=== PATIENT | male | born 1955 | race Caucasian/White ===

== ENCOUNTER 2018-05-20 13:00 | Emergency (ER) | payer OTHER ==
[2018-05-20 13:57] LABS: BASOPHIL % 0.4 % (0.0-0.4); Basophil (Absolute #) 0.03 (0-0.4); Eosinophil % 0.8 % (0.00-5.0); Eosinophil (Absolute #) 0.06 (0-0.5); Granulocyte Absolute (ANC) 4.83 (1.4-6.9); Granulocytes % 68.4 % (36.0-66.0); Hemoglobin 14.1 gm/dl (12.5-18.0); Lymphocyte (Absolute #) 1.54 (1.0-4.6); Lymphocytes % 21.8 % (24.0-44.0); Mean Cell Volume 89.5 fl (78-100); Mean Corpuscular Hemoglobin 30.8 pg (26-32); Mean Corpuscular Hgb Concent. 34.4 g/dl (32-36); Mean Platelet Volume 8.8 fl (6-9.5); Monocyte (Absolute #) 0.61 (0.0-1.3); Monocytes % 8.6 % (0.0-12.0); Platelet Count 243 K/mm3 (150-450); Red Blood Count 4.58 M/mm3 (4.1-5.6); Red Cell Distribution Width 13.4 % (11.5-14.0); White Blood Count 7.1 K/mm3 (4.0-10.5)
[2018-05-20 13:59] LABS: Amphetamine,Urine NEGATIVE (NEGATIVE); Barbiturate,Urine NEGATIVE (NEGATIVE); Benzodiazepine,Urine NEGATIVE (NEGATIVE); Cocaine,Urine NEGATIVE (NEGATIVE); Methadone,Urine NEGATIVE (NEGATIVE); Opiate,Urine NEGATIVE (NEGATIVE); PCP,Urine NEGATIVE (NEGATIVE); THC,Urine POSITIVE (NEGATIVE)
[2018-05-20 14:16] LABS: ALBUMIN 4.4 g/dL (3.5-5.0); ALKALINE PHOSPHATASE 89 U/L (38-126); ANION GAP 14.4 MEQ/L (5-15); BLOOD UREA NITROGEN 17 mg/dL (9-20); CHLORIDE 103 mmol/L (98-107); Calcium 9.1 mg/dL (8.4-10.2); Carbon Dioxide 25 mmol/L (22-30); Creatinine 1 1.26 mg/dL (0.66-1.25); Glucose 96 mg/dL (74-106); Potassium 3.9 mmol/L (3.5-5.1); SGOT/AST 19 U/L (17-59); SGPT/ALT 11 U/L (0-50); SODIUM 139 mmol/L (137-145); Total Protein 7.6 g/dL (6.3-8.2)
[2018-05-20 14:27] LABS: ETHYL ALCOHOL < 10 mg/dL (0-10)
[2018-05-20 15:59] VITALS: O2SAT 98
[2018-05-20 17:25] VITALS: BP 147/97; PULSE 82
--- NOTE | 2018-05-20 17:42 | ERPHSYRPT ---
- History of Present Illness Time Seen by Provider: 05/20/18 13:15 Source: patient Exam Limitations: clinical condition Patient Subjective Stated Complaint: patient states he was seeing people in his apt yesterday and all night until 1000 today. states he got concerned and called the police to help him. Triage Nursing Assessment: to room walking per self accompanied by ems staff. ems staff reports patient had called police to help him because he thought there were strange people in his apt. at present time patient is alert/ oriented times three, skin w/d, color normal, resp easy. having lower back pain , states this is chronic. eunice. awad without difficulty. Physician History: PATIENT WITH A HISTORY OF HYPERTENSION AND DEPRESSION, CALLED POLICE 3 TIMES LAST NIGHT WITH COMPLAINTS OF STRANGERS IN HOME. POLICE WERE UNABLE TO FIND PEOPLE IN HIS HOME. PATIENT DENIES SUICIDAL OR HOMOCIDAL THOUGHTS, VISUAL OR AUDITORY HALLUCINATIONS. DENIES INGESTION OF STREET DRUGS. Timing/Duration: yesterday Severity of Symptoms-Max: none Severity of Symptoms-Current: none Context related to: other (STRANGERS IN HOME) Suicidal thoughts: other (DENIES) Associated Symptoms: other (STATING PEOPLE IN HOME) Allergies/Adverse Reactions: iodine Allergy (Mild, Verified 05/20/18 13:15) Hives Home Medications: Lisinopril 10 mg [Zestril 10 MG] 10 mg PO DAILY 05/20/18 [History] Trazodone HCl [Desyrel] 100 mg PO HS 05/20/18 [History] Hx Tetanus, Diphtheria Vaccination/Date Given: No Hx Influenza Vaccination/Date Given: Yes Hx Pneumococcal Vaccination/Date Given: No - Past Medical History Pertinent Past Medical History: Yes Neurological History: Migraines ENT History: No Pertinent History Cardiac History: No Pertinent History Respiratory History: No Pertinent History Endocrine Medical History: No Pertinent History Musculoskeletal History: Arthritis, Degenerative Disk Disease, Other GI Medical History: Ulcer History: No Pertinent History Psycho-Social History: No Pertinent History Male Reproductive Disorders: No Pertinent History - Past Surgical History Past Surgical History: Yes Neuro Surgical History: No Pertinent History Cardiac: No Pertinent History Respiratory: No Pertinent History Gastrointestinal: No Pertinent History Genitourinary: No Pertinent History Musculoskeletal: No Pertinent History Male Surgical History: No Pertinent History Other Surgical History: NASAL SURGERY. RIGHT SHOULDER SURGERY - Social History Smoking Status: Never smoker Exposure to second hand smoke: Yes Drug Use: marijuana Patient Lives Alone: No - Review of Systems Constitutional: No Fever, No Chills Eyes: No Symptoms Ears, Nose, & Throat: No Symptoms Respiratory: No Symptoms, No Cough, No Dyspnea Cardiac: No Symptoms, No Chest Pain, No Edema, No Syncope Abdominal/Gastrointestinal: No Abdominal Pain, No Nausea, No Vomiting, No Diarrhea Genitourinary Symptoms: No Symptoms, No Dysuria Musculoskeletal: No Back Pain, No Neck Pain Skin: No Rash Neurological: No Dizziness, No Focal Weakness, No Sensory Changes Psychological: No Symptoms, Other (STATING PEOPLE MAY HAVE BEEN IN HIS HOME) Endocrine: No Symptoms All Other Systems: Reviewed and Negative - Nursing Vital Signs Nursing Vital Signs: Initial Vital Signs Temperature 98.8 F 05/20/18 13:02 Pulse Rate 74 05/20/18 13:02 Respiratory Rate 16 05/20/18 13:02 Blood Pressure 153/96 05/20/18 13:02 O2 Sat by Pulse Oximetry 97 05/20/18 13:02 Pain Scale Pain Intensity 0 - Physical Exam General Appearance: no apparent distress Eyes, Ears, Nose, Throat Exam: normal ENT inspection, moist mucous membranes Neck Exam: normal inspection, non-tender, supple Respiratory Exam: normal breath sounds, lungs clear, No respiratory distress Cardiovascular Exam: regular rate/rhythm, No edema Gastrointestinal/Abdominal Exam: soft, normal bowel sounds, No tenderness, No distention Extremities Exam: normal inspection, normal range of motion, No evidence of injury, No edema Peripheral Pulses: carotid (R): 2+, carotid (L): 2+, femoral (R): 2+, femoral (L ): 2+, dorsalis-pedis (R): 2+, dorsalis-pedis (L): 2+ Current Suicidality: denies suicide plan Neurological Exam: alert, bale sewer II-XII nml as tested, oriented x 3 Appearance: appropriate appearance, appropriate insight Behavior/Eye Contact/Speech: alert & cooperative, cooperative Thoughts/Hallucinations: normal thought pattern, no apparent hallucination ( DENIES FLIGHT OF IDEAS) Skin Exam: normal color, warm, dry, No rash SpO2: 98 Oxygen Delivery: Room Air Ordered Tests: Active Orders 24 hr Category Date Time Status CBC W DIFF Stat Lab 05/20/18 13:30 Completed CMP Stat Lab 05/20/18 13:30 Completed ETHYL ALCOHOL Stat Lab 05/20/18 13:30 Completed Urine Triage Profile Stat Lab 05/20/18 13:37 Completed Lab/Rad Data: Laboratory Result Diagrams 05/20/18 13:30 05/20/18 13:30 Laboratory Results 05/20/18 05/20/18 05/20/18 Range/Units 13:37 13:30 13:30 WBC 7.1 (4.0-10.5) K/mm3 RBC 4.58 (4.1-5.6) M/mm3 Hgb 14.1 (12.5-18.0) gm/dl Hct 41.0 L (42-50) % MCV 89.5 (78-100) fl MCH 30.8 (26-32) pg MCHC 34.4 (32-36) g/dl RDW 13.4 (11.5-14.0) % Plt Count 243 (150-450) K/mm3 MPV 8.8 (6-9.5) fl Gran % 68.4 H (36.0-66.0) % Eos # (Auto) 0.06 (0-0.5) Absolute Lymphs (auto) 1.54 (1.0-4.6) Absolute Monos (auto) 0.61 (0.0-1.3) Lymphocytes % 21.8 L (24.0-44.0) % Monocytes % 8.6 (0.0-12.0) % Eosinophils % 0.8 (0.00-5.0) % Basophils % 0.4 (0.0-0.4) % Absolute Granulocytes 4.83 (1.4-6.9) Basophils # 0.03 (0-0.4) Sodium 139 (137-145) mmol/L Potassium 3.9 (3.5-5.1) mmol/L Chloride 103 (98-107) mmol/L Carbon Dioxide 25 (22-30) mmol/L Anion Gap 14.4 (5-15) MEQ/L BUN 17 (9-20) mg/dL Creatinine 1.26 H (0.66-1.25) mg/dL Estimated GFR > 60.0 ML/MIN Glucose 96 (74-106) mg/dL Calcium 9.1 (8.4-10.2) mg/dL Total Bilirubin 0.80 (0.2-1.3) mg/dL AST 19 (17-59) U/L ALT 11 (0-50) U/L Alkaline Phosphatase 89 (38-126) U/L Serum Total Protein 7.6 (6.3-8.2) g/dL Albumin 4.4 (3.5-5.0) g/dL Urine Opiates Level NEGATIVE (NEGATIVE) Ur Methadone NEGATIVE (NEGATIVE) Urine Barbiturates NEGATIVE (NEGATIVE) Ur Phencyclidine (PCP) NEGATIVE (NEGATIVE) Urine Amphetamine NEGATIVE (NEGATIVE) U Benzodiazepine Level NEGATIVE (NEGATIVE) Urine Cocaine NEGATIVE (NEGATIVE) Urine Marijuana (THC) POSITIVE (NEGATIVE) Ethyl Alcohol < 10 (0-10) mg/dL - Progress Progress Note: 05/20/18 17:42 TELE-PSYCH EVALUATION, PATIENT IS NOT A DANGER TO HIMSELF OR OTHERS Counseled pt/family regarding: lab results, diagnosis - Departure Time of Disposition: 17:45 Departure Disposition: Home Clinical Impression: DEPRESSION Condition: Good Critical Care Time: No Referrals: LUCILA THOMASON [Primary Care Provider] - Additional Instructions: FOLLOWUP WITH [facility] FOR EVALUATION TOMORROW FOR FOLLOWUP . CONSULT YOUR PRIMARY CARE PROVIDER FOR EVALUATION IN 4-5 DAYS OR RETURN TO EMERGENCY ROOM FOR PERSISTENT SYMPTOMS.
== END 2018-05-20 17:57 | disposition home or self-care (01) ==
LOC: ED 13:00
DX: F32.9 Major depressive disorder, single episode, unspecified (principal); I10 Essential (primary) hypertension; Z79.899 Other long term (current) drug therapy
CPT/HCPCS: 36000; 36415; 80053; 80307; 85025; 90791; 99284; Q3014; G0480

== ENCOUNTER 2021-07-07 13:27 | Emergency (ER) | payer MEDICARE ==
[2021-07-07 14:32] LABS: Absolute Neutrophil Ct (ANC) 3.32 (1.4-6.9); BASOPHIL % 0.5 % (0.0-0.4); Basophil (Absolute #) 0.03 (0-0.4); Eosinophil % 7.6 % (0.00-5.0); Eosinophil (Absolute #) 0.47 (0-0.5); Hematocrit 37.6 % (42-50); Hemoglobin 12.1 gm/dl (12.5-18.0); Lymphocyte (Absolute #) 1.72 (1.0-4.6); Lymphocytes % 27.8 % (24.0-44.0); Mean Cell Volume 99.5 fl (78-100); Mean Corpuscular Hgb Concent. 32.2 g/dl (32-36); Mean Platelet Volume 8.8 fl (7.5-11.0); Monocyte (Absolute #) 0.65 (0.0-1.3); Monocytes % 10.5 % (0.0-12.0); Neutrophil % 53.6 % (36.0-66.0); Platelet Count 204 K/mm3 (150-450); Red Blood Count 3.78 M/mm3 (4.1-5.6); White Blood Count 6.2 K/mm3 (4.0-10.5)
--- NOTE | 2021-07-07 14:39 | XRAY ---
Indication: Short of breath. Comparison: April 22, 2014. Portable chest remains hyperinflated and clear. Stable incidental right hilar and right midlung calcified granulomas. Heart not enlarged. Bony thorax intact again with mild degenerative changes. Impression: Continued nonacute hyperinflated chest with chronic features.
[2021-07-07 14:48] LABS: ALBUMIN 3.7 g/dL (3.5-5.0); ALKALINE PHOSPHATASE 100 U/L (38-126); ANION GAP 9.8 MEQ/L (5-15); BLOOD UREA NITROGEN 18 mg/dL (9-20); CHLORIDE 101 mmol/L (98-107); Calcium 8.8 mg/dL (8.4-10.2); Carbon Dioxide 30 mmol/L (22-30); Creatinine 1 0.98 mg/dL (0.66-1.25); EST GLOMERULAR FILTRATION RATE > 60.0 ML/MIN; Glucose 102 mg/dL (74-106); MAGNESIUM 1.9 mg/dL (1.6-2.3); NT PRO BNP 225 pg/mL (0-900); Potassium 4.1 mmol/L (3.5-5.1); SGOT/AST 28 U/L (17-59); SGPT/ALT 20 U/L (0-50); SODIUM 137 mmol/L (137-145); Total Protein 6.5 g/dL (6.3-8.2)
--- NOTE | 2021-07-07 15:06 | ERPHSYRPT ---
- History of Present Illness Time Seen by Provider: 07/07/21 13:45 Source: patient Exam Limitations: no limitations Patient Subjective Stated Complaint: bilateral lower leg swelling Triage Nursing Assessment: pt to ED c/o bilateral lower leg swelling without pain x 4 days. states he has not noticed this swelling before, reports only cardiac hx is HTN. denies CP or SOB. no other associated sx reported. Physician History: Patient is a 65-year-old white male who presents with a 4-day history of swelling of both lower extremities from the knees to the toes. He denies any shortness of breath he denies any chest pain he denies any change in his urination. Timing/Duration: day(s) (4) Activities at Onset: none Quality: fullness, pressure Location: other (Both lower extremities) Chest Pain Radiation: no radiation Severity of Pain-Max: mild Severity of Pain-Current: mild Modifying Factors: Improves With: nothing Nitro Today/Relief: no nitro taken today Aspirin Treatment Today: no aspirin today Associated Symptoms: denies symptoms Prior Chest Pain/Cardiac Workup: no prior chest pain Allergies/Adverse Reactions: iodine Allergy (Mild, Verified 07/07/21 13:56) Hives Home Medications: Lisinopril 10 mg [Zestril 10 MG] 10 mg PO DAILY 05/20/18 [History] Trazodone HCl [Desyrel] 100 mg PO HS 05/20/18 [History] Hx Tetanus, Diphtheria Vaccination/Date Given: No Hx Influenza Vaccination/Date Given: Yes Hx Pneumococcal Vaccination/Date Given: No Immunizations Up to Date: No Travel Risk - International Travel Have you traveled outside of the country in past 3 weeks: No - Coronavirus Screening Are you exhibiting any of the following symptoms?: No Close contact with a COVID-19 positive Pt in past 14-21 Days: No - Vaccine Status Have you recieved a Covid-19 vaccination: Yes [employer]: Moderna - Vaccination Dates Date of 2cond Vaccination (if applicable): february - Review of Systems Constitutional: No Fever, No Chills Eyes: No Symptoms Ears, Nose, & Throat: No Symptoms Respiratory: No Cough, No Dyspnea Cardiac: Edema, No Chest Pain, No Syncope Abdominal/Gastrointestinal: No Abdominal Pain, No Nausea, No Vomiting, No Diarrhea Genitourinary Symptoms: No Dysuria Musculoskeletal: No Back Pain, No Neck Pain Skin: No Rash Neurological: No Dizziness, No Focal Weakness, No Sensory Changes Psychological: No Symptoms Endocrine: No Symptoms All Other Systems: Reviewed and Negative - Past Medical History Pertinent Past Medical History: Yes Neurological History: Migraines ENT History: No Pertinent History Cardiac History: No Pertinent History Respiratory History: No Pertinent History Endocrine Medical History: No Pertinent History Musculoskeletal History: Arthritis, Degenerative Disk Disease, Other GI Medical History: Ulcer History: No Pertinent History Psycho-Social History: No Pertinent History Male Reproductive Disorders: No Pertinent History Other Medical History: lower lumbar fx as teenager, chronic back pain - Past Surgical History Past Surgical History: Yes Neuro Surgical History: No Pertinent History Cardiac: No Pertinent History Respiratory: No Pertinent History Gastrointestinal: No Pertinent History Genitourinary: No Pertinent History Musculoskeletal: No Pertinent History Male Surgical History: No Pertinent History Other Surgical History: NASAL SURGERY. RIGHT SHOULDER SURGERY - Social History Smoking Status: Never smoker Exposure to second hand smoke: Yes Drug Use: none Patient Lives Alone: No - Nursing Vital Signs Nursing Vital Signs: Initial Vital Signs Temperature 98.0 F 07/07/21 13:44 Pulse Rate 126 H 07/07/21 13:44 Respiratory Rate 20 07/07/21 13:44 Blood Pressure 176/100 07/07/21 13:44 O2 Sat by Pulse Oximetry 100 07/07/21 13:44 Pain Scale Pain Intensity 0 - Physical Exam General Appearance: no apparent distress, alert Eye Exam: PERRL/EOMI, eyes nml inspection Ears, Nose, Throat Exam: normal ENT inspection, moist mucous membranes Neck Exam: normal inspection, non-tender, supple Respiratory Exam: normal breath sounds, lungs clear, No respiratory distress Cardiovascular Exam: regular rate/rhythm, normal heart sounds, No edema Gastrointestinal/Abdomen Exam: soft, No tenderness, No mass Back Exam: normal inspection, No CVA tenderness, No vertebral tenderness Extremity Exam: normal range of motion, pedal edema (2+) Neurologic Exam: alert, oriented x 3, cooperative, normal mood/affect, nml cerebellar function, sensation nml, No motor deficits Skin Exam: normal color, warm, dry Lymphatic Exam: No adenopathy SpO2: 100 - Course Nursing assessment & vital signs reviewed: Yes Ordered Tests: Active Orders 24 hr Category Date Time Status EKG-ER Only STAT Care 07/07/21 14:08 Active CHEST 1 VIEW (PORTABLE) Stat Exams 07/07/21 14:09 Completed CBC W DIFF Stat Lab 07/07/21 14:20 Completed CMP Stat Lab 07/07/21 14:20 Completed D-DIMER QUANTITATIVE Stat Lab 07/07/21 14:20 Received MAGNESIUM Stat Lab 07/07/21 14:20 Completed NT PRO BNP Stat Lab 07/07/21 14:20 Completed TROPONIN Q3H Lab 07/07/21 14:20 Received TROPONIN Q3H Lab 07/07/21 17:15 Ordered TROPONIN Q3H Lab 07/07/21 20:15 Ordered TROPONIN Q3H Lab 07/07/21 23:15 Ordered TROPONIN Q3H Lab 07/08/21 02:15 Ordered UA W/RFX UR CULTURE Stat Lab 07/07/21 14:09 Ordered Lab/Rad Data: Laboratory Result Diagrams 07/07/21 14:20 07/07/21 14:20 Laboratory Results 07/07/21 07/07/21 Range/Units 14:20 14:20 WBC 6.2 (4.0-10.5) K/mm3 RBC 3.78 L (4.1-5.6) M/mm3 Hgb 12.1 L (12.5-18.0) gm/dl Hct 37.6 L (42-50) % MCV 99.5 (78-100) fl MCH 32.0 (26-32) pg MCHC 32.2 (32-36) g/dl RDW 13.0 (11.5-14.0) % Plt Count 204 (150-450) K/mm3 MPV 8.8 (7.5-11.0) fl Gran % 53.6 (36.0-66.0) % Eos # (Auto) 0.47 (0-0.5) Absolute Lymphs (auto) 1.72 (1.0-4.6) Absolute Monos (auto) 0.65 (0.0-1.3) Lymphocytes % 27.8 (24.0-44.0) % Monocytes % 10.5 (0.0-12.0) % Eosinophils % 7.6 H (0.00-5.0) % Basophils % 0.5 (0.0-0.4) % Absolute Granulocytes 3.32 (1.4-6.9) Basophils # 0.03 (0-0.4) Sodium 137 (137-145) mmol/L Potassium 4.1 (3.5-5.1) mmol/L Chloride 101 (98-107) mmol/L Carbon Dioxide 30 (22-30) mmol/L Anion Gap 9.8 (5-15) MEQ/L BUN 18 (9-20) mg/dL Creatinine 0.98 (0.66-1.25) mg/dL Estimated GFR > 60.0 ML/MIN Glucose 102 (74-106) mg/dL Calcium 8.8 (8.4-10.2) mg/dL Magnesium 1.9 (1.6-2.3) mg/dL Total Bilirubin 0.30 (0.2-1.3) mg/dL AST 28 (17-59) U/L ALT 20 (0-50) U/L Alkaline Phosphatase 100 (38-126) U/L NT-Pro-B Natriuret Pep 225 (0-900) pg/mL Serum Total Protein 6.5 (6.3-8.2) g/dL Albumin 3.7 (3.5-5.0) g/dL - Progress Progress: unchanged Air Movement: good Blood Culture(s) Obtained: No Antibiotics given: No - Departure Departure Disposition: Home Clinical Impression: Peripheral edema Condition: Stable Critical Care Time: No Referrals: LUCILA THOMASON [Primary Care Provider] - Instructions: Dependent Edema (DC) Prescriptions: Furosemide 20 mg [Lasix 20 mg] 20 mg PO DAILY 7 Days #7 tablet
--- NOTE | 2021-07-07 16:27 | XRAY ---
Indication: Bilateral leg pain. Short of breath. Two-dimensional sonogram and color Doppler imaging of the major venous vessels of the left and right leg performed. Comparison: None No thrombus seen in the examined deep venous vessels of the left and right leg including greater saphenous vein. Veins demonstrate normal compressibility. Venous waveforms are normal with and without augmentation. Posterior right knee demonstrates 4.2 x 0.9 x 2.3 cm Ellis's cyst. Impression: Left and right legs negative for DVT. Incidental right Ellis cyst.
[2021-07-07 16:43] LABS: Appearance CLEAR (CLEAR); Bilirubin NEGATIVE (NEGATIVE); Blood MODERATE Ery/ul (0-5); Glucose NEGATIVE (NEGATIVE); Ketones NEGATIVE (NEGATIVE); Leukocyte Esterase NEGATIVE (NEGATIVE); Nitrite NEGATIVE (NEGATIVE); Protein,Urine Dip NEGATIVE (Negative); Specific Gravity 1.021 (1.005-1.025); Urobilinogen NEGATIVE mg/dL (0-1); WBC 0-2 /HPF (0-5)
[2021-07-07] MEDS ORDERED: Catapres 0.1 MG PO ONE (16:43)
[2021-07-07] MEDS ORDERED: LASIX 20 MG PO ONE (16:45)
[2021-07-07] MEDS ORDERED: Catapres 0.1 MG ONE (16:49)
[2021-07-07 17:02] VITALS: BP 180/118; PULSE 77; O2SAT 99
[2021-07-08] MEDS ORDERED: Zestril 20 MG PO ONE (16:44)
== END 2021-07-07 17:03 | disposition home or self-care (01) ==
LOC: ED 13:27
DX: R60.0 Localized edema (principal); R79.1 Abnormal coagulation profile; Z79.899 Other long term (current) drug therapy; Z20.822 Contact with and (suspected) exposure to COVID-19
CPT/HCPCS: 36415; 71045; 80053; 81001; 83735; 83880; 84484; 85025; 85379; 93005; 93970; 99284; A9270-GY

== ENCOUNTER 2021-08-06 16:05 | Emergency (ER) | payer MEDICARE ==
--- NOTE | 2021-08-06 17:06 | ERPHSYRPT ---
- History of Present Illness Time Seen by Provider: 08/06/21 17:06 Source: patient Exam Limitations: no limitations Physician History: This is a 65-year-old white male patient of Dr. Tristan out of [facility] who returns to this emergency department with a complaint of bilateral lower extremity swelling of 2 to 3-day duration. Patient has similar episode proxy 1 month ago. Patient was given Lasix orally for 7 days and the symptoms resolved and he never sought medical care with his primary care physician. Patient has no known renal or cardiac issues. Patient does have a history of hypertension, migraine headaches, DJD and prostate issues. He has noticed that his stream has slowed down and he is not emptying his bladder as well. Patient denies chest pain and he denies shortness of breath. Method of Injury: other Occurred: other (No injury) Quality: other (No significant pain) Severity of Pain-Max: none Severity of Pain-Current: none Modifying Factors: Improves With: nothing Allergies/Adverse Reactions: iodine Allergy (Mild, Verified 08/06/21 17:14) Hives Home Medications: Lisinopril 10 mg [Zestril 10 MG] 10 mg PO DAILY 05/20/18 [History] Trazodone HCl [Desyrel] 100 mg PO HS 05/20/18 [History] Oxycodone HCl/Acetaminophen [Oxycodone-Acetaminophen 10-325] 1 each PO QID 08/06/21 [History] Hx Tetanus, Diphtheria Vaccination/Date Given: No Hx Influenza Vaccination/Date Given: Yes Hx Pneumococcal Vaccination/Date Given: No Travel Risk - International Travel Have you traveled outside of the country in past 3 weeks: No - Coronavirus Screening Are you exhibiting any of the following symptoms?: No Close contact with a COVID-19 positive Pt in past 14-21 Days: No - Vaccine Status Have you recieved a Covid-19 vaccination: Yes [employer]: Moderna - Vaccination Dates Date of 2cond Vaccination (if applicable): february - Review of Systems Constitutional: No Symptoms Eyes: No Symptoms Ears, Nose, & Throat: No Symptoms Respiratory: No Symptoms Cardiac: No Symptoms Abdominal/Gastrointestinal: No Symptoms Genitourinary Symptoms: No Symptoms Musculoskeletal: Other (Swelling bilateral lower extremities) Skin: No Symptoms Neurological: No Symptoms Psychological: No Symptoms Endocrine: No Symptoms Hematologic/Lymphatic: No Symptoms Immunological/Allergic: No Symptoms All Other Systems: Reviewed and Negative - Past Medical History Pertinent Past Medical History: Yes Neurological History: Migraines ENT History: No Pertinent History Cardiac History: No Pertinent History Respiratory History: No Pertinent History Endocrine Medical History: No Pertinent History Musculoskeletal History: Arthritis, Degenerative Disk Disease, Other GI Medical History: Ulcer History: No Pertinent History Psycho-Social History: No Pertinent History Male Reproductive Disorders: No Pertinent History Other Medical History: lower lumbar fx as teenager, chronic back pain - Past Surgical History Past Surgical History: Yes Neuro Surgical History: No Pertinent History Cardiac: No Pertinent History Respiratory: No Pertinent History Gastrointestinal: No Pertinent History Genitourinary: No Pertinent History Musculoskeletal: No Pertinent History Male Surgical History: No Pertinent History Other Surgical History: NASAL SURGERY. RIGHT SHOULDER SURGERY - Social History Smoking Status: Never smoker Exposure to second hand smoke: Yes Drug Use: none Patient Lives Alone: No - Nursing Vital Signs Nursing Vital Signs: Initial Vital Signs Temperature 97.0 F 08/06/21 17:09 Pulse Rate 76 08/06/21 17:09 Respiratory Rate 18 08/06/21 17:09 Blood Pressure 205/113 08/06/21 17:09 O2 Sat by Pulse Oximetry 99 08/06/21 17:09 Pain Scale Pain Intensity 2 - Physical Exam General Appearance: no apparent distress, alert, anxiety Eyes, Ears, Nose, Throat Exam: normal ENT inspection, moist mucous membranes Neck Exam: normal inspection, non-tender, supple, full range of motion Cardiovascular/Respiratory Exam: chest non-tender, no respiratory distress Gastrointestinal/Abdominal Exam: non-tender Back Exam: normal inspection, normal range of motion, No CVA tenderness, No vertebral tenderness Hips Exam: bilateral: non-tender, normal inspection, normal range of motion, no evidence of injury Legs Exam: bilateral leg: non-tender, normal inspection, normal range of motion, no evidence of injury Knees Exam: bilateral knee: non-tender, normal inspection, normal range of motion, no evidence of injury Ankle Exam: bilateral ankle: non-tender, normal range of motion, no evidence of injury, swelling (Mild but present) Foot Exam: bilateral foot: non-tender, normal range of motion, no evidence of injury, swelling Neuro/Tendon Exam: normal sensation, normal motor functions, normal tendon functions, responds to pain, no evidence tendon injury Mental Status Exam: alert, oriented x 3, cooperative Skin Exam: normal color, warm, dry SpO2 Interpretation: normal O2 Delivery: Room Air - Course Nursing assessment & vital signs reviewed: Yes Ordered Tests: Active Orders 24 hr Category Date Time Status AMA [Release AMA] OM.NOW Care 08/06/21 19:18 Ordered IV Insertion STAT Care 08/06/21 18:00 Active CBC W DIFF Stat Lab 08/06/21 18:20 Completed CMP Stat Lab 08/06/21 18:20 Completed D-DIMER QUANTITATIVE Stat Lab 08/06/21 18:15 Completed MAGNESIUM Stat Lab 08/06/21 18:20 Completed NT PRO BNP Stat Lab 08/06/21 18:20 Completed Medication Summary Discontinued Medications Generic Name Dose Route Start Last Admin Trade Name Freq PRN Reason Stop Dose Admin Furosemide 40 mg 08/06/21 18:40 Furosemide 40 Mg/4 Ml Vial IV 08/06/21 18:41 STAT ONE Lab/Rad Data: Laboratory Result Diagrams 08/06/21 18:20 08/06/21 18:20 Laboratory Results 08/06/21 08/06/21 08/06/21 Range/Units 18:20 18:20 18:15 WBC 6.0 (4.0-10.5) K/mm3 RBC 4.06 L (4.1-5.6) M/mm3 Hgb 12.8 (12.5-18.0) gm/dl Hct 39.6 L (42-50) % MCV 97.5 (78-100) fl MCH 31.5 (26-32) pg MCHC 32.3 (32-36) g/dl RDW 12.8 (11.5-14.0) % Plt Count 99 L (150-450) K/mm3 MPV 9.8 (7.5-11.0) fl Gran % 68.2 H (36.0-66.0) % Eos # (Auto) 0.20 (0-0.5) Absolute Lymphs (auto) 1.23 (1.0-4.6) Absolute Monos (auto) 0.44 (0.0-1.3) Lymphocytes % 20.6 L (24.0-44.0) % Monocytes % 7.4 (0.0-12.0) % Eosinophils % 3.3 (0.00-5.0) % Basophils % 0.5 (0.0-0.4) % Absolute Granulocytes 4.08 (1.4-6.9) Basophils # 0.03 (0-0.4) D-Dimer 1416 H* (215-500) ng/mL Sodium 137 (137-145) mmol/L Potassium 4.2 (3.5-5.1) mmol/L Chloride 104 (98-107) mmol/L Carbon Dioxide 26 (22-30) mmol/L Anion Gap 11.0 (5-15) MEQ/L BUN 11 (9-20) mg/dL Creatinine 0.96 (0.66-1.25) mg/dL Estimated GFR > 60.0 ML/MIN Glucose 99 (74-106) mg/dL Calcium 9.5 (8.4-10.2) mg/dL Magnesium 1.6 (1.6-2.3) mg/dL Total Bilirubin 0.50 (0.2-1.3) mg/dL AST 29 (17-59) U/L ALT 17 (0-50) U/L Alkaline Phosphatase 73 (38-126) U/L NT-Pro-B Natriuret Pep 774 (0-900) pg/mL Serum Total Protein 6.2 L (6.3-8.2) g/dL Albumin 3.5 (3.5-5.0) g/dL - Progress Progress: improved Progress Note: 08/06/21 19:19 Medical decision making: This patient suddenly decided that he wanted to leave AMA. His reasoning was that he is cold and he did want to wait for the complete work-up. I expressed to him the importance of staying to complete the work-up. However he refused and signed an AMA form. He is aware that we are waiting for labs to return including a screening test for blood clots. He still wanted to leave knowing the risk of blood clots in his legs and possible transfer to the heart and lungs potentially leading to . Counseled pt/family regarding: lab results, diagnosis, need for follow-up - Departure Departure Disposition: AMA Clinical Impression: Peripheral edema Condition: Stable Critical Care Time: No Referrals: LUCILA TRISTAN [Primary Care Provider] - Additional Instructions: Take your medication as prescribed. Follow-up with Dr. Tristan on 08/09/2021 to make arrangements for further management. Prescriptions: Furosemide 20 mg [Lasix 20 mg] 20 mg PO DAILY #4 tablet
[2021-08-06 18:35] LABS: Absolute Neutrophil Ct (ANC) 4.08 (1.4-6.9); BASOPHIL % 0.5 % (0.0-0.4); Basophil (Absolute #) 0.03 (0-0.4); Eosinophil % 3.3 % (0.00-5.0); Hematocrit 39.6 % (42-50); Hemoglobin 12.8 gm/dl (12.5-18.0); Lymphocyte (Absolute #) 1.23 (1.0-4.6); Lymphocytes % 20.6 % (24.0-44.0); Mean Cell Volume 97.5 fl (78-100); Mean Corpuscular Hemoglobin 31.5 pg (26-32); Mean Corpuscular Hgb Concent. 32.3 g/dl (32-36); Mean Platelet Volume 9.8 fl (7.5-11.0); Monocyte (Absolute #) 0.44 (0.0-1.3); Monocytes % 7.4 % (0.0-12.0); Neutrophil % 68.2 % (36.0-66.0); Platelet Count 99 K/mm3 (150-450); Red Blood Count 4.06 M/mm3 (4.1-5.6); Red Cell Distribution Width 12.8 % (11.5-14.0)
[2021-08-06] MEDS ORDERED: Lasix 40 MG/4 ML IV ONE (18:40)
[2021-08-06 18:44] LABS: ALBUMIN 3.5 g/dL (3.5-5.0); ALKALINE PHOSPHATASE 73 U/L (38-126); BLOOD UREA NITROGEN 11 mg/dL (9-20); CHLORIDE 104 mmol/L (98-107); Calcium 9.5 mg/dL (8.4-10.2); Carbon Dioxide 26 mmol/L (22-30); Creatinine 1 0.96 mg/dL (0.66-1.25); EST GLOMERULAR FILTRATION RATE > 60.0 ML/MIN; Glucose 99 mg/dL (74-106); MAGNESIUM 1.6 mg/dL (1.6-2.3); NT PRO BNP 774 pg/mL (0-900); Potassium 4.2 mmol/L (3.5-5.1); SGOT/AST 29 U/L (17-59); SGPT/ALT 17 U/L (0-50); SODIUM 137 mmol/L (137-145); Total Protein 6.2 g/dL (6.3-8.2)
[2021-08-06 19:17] VITALS: BP 186/101; PULSE 83; O2SAT 96
== END 2021-08-06 19:32 | disposition left against medical advice (07) ==
LOC: ED 16:05
DX: R60.9 Edema, unspecified (principal)
CPT/HCPCS: 36415; 80053; 83735; 83880; 85025; 85379; 99283

== ENCOUNTER 2021-12-27 08:34 | Day surgery (SDC) | payer MEDICARE ==
--- NOTE | 2021-12-27 07:44 | HP ---
DATE OF SURGERY: 12/27/2021 HISTORY OF PRESENT ILLNESS: The patient is a 66-year-old last colonoscopy 17 years ago. Occasional blood in the stool on rare occasion. No upper abdominal pain. No recent changes in in bowel movements. Family history negative for colon cancer. Last colonoscopy 17 years ago. He is in need of follow up screening colonoscopy. PAST MEDICAL HISTORY: Chronic back problems, has some hypertension. PAST SURGICAL HISTORY: Shoulder surgery, nasal surgery. MEDICATIONS: Percocet for his back and lisinopril. ALLERGIES: IODINE. FAMILY HISTORY: Negative for colon cancer. SOCIAL HISTORY: Denies smoking or alcohol abuse. REVIEW OF SYSTEMS: Fourteen systems reviewed. No chest pain or palpitations. Other systems negative or noncontributory as above and per preadmission questionnaire. PHYSICAL EXAMINATION: GENERAL: No acute distress. HEENT: Sclerae nonicteric. NECK: No JVD. CHEST: Equal excursion, nonlabored breathing. CVS: Regular rate and rhythm. ABDOMEN: Soft. No peritoneal signs. EXTREMITIES: No significant edema. NEURO: Alert, oriented, moving extremities symmetrically. RECTAL: Deferred timed to endoscopy exam. PSYCH: Appropriate mood and affect. IMPRESSION: Need for follow up screening colonoscopy. I feel he is a candidate. General risk of bleeding or infection, risk of bowel injury or perforation possibly requiring open procedure, risk of missed or nondiagnosis or incomplete exam possibly requiring barium enema, other studies or procedures, general risk of anesthesia or sedation, risk of bowel prep but not limited to, consent obtained. Will proceed with colonoscopy under MAC anesthesia as an outpatient.
[2021-12-27] MEDS ORDERED: Lactated Ringers 1,000 ML IV SCH (10:30)
[2021-12-27] MEDS ORDERED: Xylocaine-Mpf 2% 5 Ml Vial ONE (11:17)
[2021-12-27] MEDS ORDERED: DIPRIVAN 200 MG/20 ML IV ONE ×2 (11:17→11:30)
[2021-12-27 12:25] VITALS: O2SAT 99
[2021-12-27 12:42] VITALS: BP 147/99; PULSE 60
--- NOTE | 2021-12-27 15:13 | OP ---
SURGERY DATE/TIME: 12/27/2021 1118 PREOPERATIVE DIAGNOSIS: Need for screening colonoscopy. POSTOPERATIVE DIAGNOSES: 1) Small early polyp versus hyperplastic lesion cecum and rectum. 2) Two small diverticula left colon. PROCEDURES: 1) Colonoscopy to cecum with hot biopsy polypectomy early polyp versus hyperplastic lesion x2. 2) Hot biopsy polypectomy small early polyp versus hyperplastic lesion rectum x1. SURGEON: Dr. oCy Ovalle. ANESTHESIA: MAC. ESTIMATED BLOOD LOSS: Minimal. INDICATIONS: As noted above. Risks and benefits explained in detail but not limited to and consent obtained. DESCRIPTION OF PROCEDURE AND FINDINGS: The patient is taken to the endoscopy room. MAC anesthesia induced. After official time out and no disagreement with planned procedure, digital rectal exam did not reveal any rectal masses. Video colonoscope inserted and passed up through the tortuous sigmoid, descending, transverse and ascending colon. With the external pressure by two staff members and positioning on his back, the scope was able to be passed to the cecum. Appendiceal orifice and valve well visualized and photo documented. There were a couple of small early polyps near the appendiceal orifice area versus hyperplastic lesion and these were removed with hot biopsy forceps with brief bursts of cautery. Good hemostasis noted. Prep overall was fair. ASA Class III. Scope is carefully withdrawn over the next 9 minutes. No signs of any large polyps, masses or any other obstructing lesion. There is a small amount of liquidy stool suctioned and irrigated out as clear as possible. The scope pulled back. He did have a few small diverticula in the left colon. Otherwise a small early polyp versus hyperplastic lesion in the rectum was removed with hot biopsy forceps with brief bursts of cautery. There was brief ooze. A brief touch of cautery x1. After inspection for a few minutes appeared to have good hemostasis. It did not seem to indicate a clip at this time. Scope was then withdrawn. The patient tolerated the procedure well. There were no immediate complications. There was no family in the waiting area when I went out there initially.
== END 2021-12-27 13:40 | disposition home or self-care (01) ==
LOC: SDC 08:34
PROVIDERS: ATTEND Surgery
DX: Z12.11 Encounter for screening for malignant neoplasm of colon (principal); K62.1 Rectal polyp; K57.30 Diverticulosis of large intestine without perforation or abscess without bleeding; D12.0 Benign neoplasm of cecum
CPT/HCPCS: J2704

== ENCOUNTER 2022-03-30 22:06 | Emergency (ER) | payer MEDICARE ==
[2022-03-30 22:44] VITALS: O2SAT 94
[2022-03-30] MEDS ORDERED: XYLOCAINE 2% HCL 20 ML MDV ONE (22:50)
[2022-03-30] MEDS ORDERED: Xylocaine-Mpf 2% 5 Ml Vial IJ ONE (23:02)
--- NOTE | 2022-03-30 23:04 | ERPHSYRPT ---
- History of Present Illness Time Seen by Provider: 03/30/22 22:45 Source: patient Exam Limitations: no limitations Patient Subjective Stated Complaint: pt states he fell forward and hit his hand on something in the stairway when he caught himself. states he thinks his finger is broken or dislocated. denies any other injury Triage Nursing Assessment: pt alert and oriented, answers questions approp. pt ambulatory with slow steady gait noted. respirations nonlabored. skin warm and dry. obvious deformity, swelling, and bruising noted to 5th digit on lt hand. radial pulse and cap refill wnl. Physician History: Patient is a 66-year-old male presents to our ED for evaluation of a finger injury. Patient states he was descending steps and tripped. The fall was not associated with any neuro cardiovascular symptomology. No associated chest pain or shortness of breath. No nausea vomiting or diaphoresis. No numbness tingling or weakness. Fall occurred just prior to arrival. Patient has a obvious deformity at the left fifth PIP joint. There appears to be a dislocation. The involved digit is neurovascular intact distally. No other injuries reported. No BHT or LOC. No neck pain. Cervical spine cleared cli nically. Patient otherwise feels well. Patient voices no other complaints or concerns this time. Occurred: just prior to arrival Method of Injury: fell Quality: constant Severity of Pain-Max: moderate Severity of Pain-Current: mild Extremities Pain Location: 5th finger: left Modifying Factors: Improves With: movement Associated Symptoms: none Allergies/Adverse Reactions: iodine Allergy (Mild, Verified 03/30/22 22:44) Hives Home Medications: Lisinopril 10 mg [Zestril 10 MG] 20 mg PO DAILY 05/20/18 [History] Oxycodone HCl/Acetaminophen [Oxycodone-Acetaminophen 10-325] 1 each PO QID 08/06/21 [History] Esomeprazole Magnesium [Nexium] 0 mg PO UD PRN 12/27/21 [History] Furosemide 20 mg [Lasix 20 mg] 20 mg PO DAILY PRN 12/27/21 [History] Hx Tetanus, Diphtheria Vaccination/Date Given: No Hx Influenza Vaccination/Date Given: Yes Hx Pneumococcal Vaccination/Date Given: No Travel Risk - International Travel Have you traveled outside of the country in past 3 weeks: No - Coronavirus Screening Are you exhibiting any of the following symptoms?: No Close contact with a COVID-19 positive Pt in past 14-21 Days: No - Vaccine Status Have you recieved a Covid-19 vaccination: Yes Hospice Physician: Moderna - Vaccination Dates Date of 2cond Vaccination (if applicable): 2020 - Review of Systems Constitutional: No Symptoms, No Fever, No Chills Eyes: No Symptoms Ears, Nose, & Throat: No Symptoms Respiratory: No Symptoms, No Cough, No Dyspnea Cardiac: No Symptoms, No Chest Pain, No Edema, No Syncope Abdominal/Gastrointestinal: No Symptoms, No Abdominal Pain, No Nausea, No Vomiting, No Diarrhea Genitourinary Symptoms: No Symptoms, No Dysuria Musculoskeletal: No Symptoms, No Back Pain, No Neck Pain Skin: No Symptoms, No Rash Neurological: No Symptoms, No Dizziness, No Focal Weakness, No Sensory Changes Psychological: No Symptoms Endocrine: No Symptoms Hematologic/Lymphatic: No Symptoms Immunological/Allergic: No Symptoms All Other Systems: Reviewed and Negative - Past Medical History Pertinent Past Medical History: Yes Neurological History: Migraines ENT History: No Pertinent History Cardiac History: Hypertension Respiratory History: No Pertinent History Endocrine Medical History: No Pertinent History Musculoskeletal History: Arthritis, Degenerative Disk Disease, Other GI Medical History: Ulcer History: No Pertinent History Psycho-Social History: No Pertinent History Male Reproductive Disorders: No Pertinent History Other Medical History: lower lumbar fx as teenager, chronic back pain - Past Surgical History Past Surgical History: Yes Neuro Surgical History: No Pertinent History Cardiac: No Pertinent History Respiratory: No Pertinent History Gastrointestinal: No Pertinent History Genitourinary: No Pertinent History Musculoskeletal: No Pertinent History Male Surgical History: No Pertinent History Other Surgical History: NASAL SURGERY. RIGHT SHOULDER SURGERY - Social History Smoking Status: Never smoker Exposure to second hand smoke: No Drug Use: none Patient Lives Alone: Yes - Nursing Vital Signs Nursing Vital Signs: Initial Vital Signs Temperature 97.3 F 03/30/22 22:26 Pulse Rate 70 03/30/22 22:26 Respiratory Rate 16 03/30/22 22:26 Blood Pressure 122/87 03/30/22 22:26 O2 Sat by Pulse Oximetry 94 L 03/30/22 22:26 Pain Scale Pain Intensity 9 - Physical Exam General Appearance: no apparent distress, alert Eyes, Ears, Nose, Throat Exam: normal ENT inspection, TMs normal, pharynx normal, moist mucous membranes Neck Exam: normal inspection, non-tender, supple, full range of motion Cardiovascular/Respiratory Exam: chest non-tender, normal breath sounds, regular rate/rhythm, heart sounds normal, no respiratory distress Abdominal Exam: non-tender, soft, No guarding Back Exam: normal inspection, normal range of motion, No vertebral tenderness Shoulder Exam: normal inspection, non-tender, no evidence of injury, normal ROM Elbow/Forearm Exam: normal inspection, non-tender, no evidence of injury, normal ROM Wrist Exam: normal inspection, non-tender, no evidence of injury, normal ROM Hand Exam: swelling (Left fifth digit angulation at the PIP joint. There is a small punctate wound with a small amount of blood oozing. The extremity is neurovascularly intact distally. The digit cap refill less than 2 seconds. Sensation intact. Compartments are soft) Neuro/Tendon Exam: normal sensation, normal motor functions Mental Status Exam: alert, oriented x 3, cooperative Skin Exam: normal color, warm, dry SpO2 Interpretation: normal SpO2: 94 O2 Delivery: Room Air Procedures - Joint Reduction Time of Procedure: 23:07 Timeout: Performed Joint Reduction Site: Left, 5th digit Conscious Sedation: No Reduction Attempts: 1 Pre-Procedure Neurovascular Exam: neurovascular intact Post Procedure Neurovascular Exam: neurovascular intact Post Joint Reduction Film: joint reduced Progress: Successful reduction. Finger and extremity neurovascular intact distally post procedure. There is a small punctate wound at the palmar aspect of the PIP joint. Patient will be treated with antibiotics for an open dislocation. Patient will be referred to orthopedic clinic for follow-up. - Nerve Block Time of Procedure: 23:11 Location: Left fifth digit Prepped with: Alcohol wipe Anesthesia: 2% Lidocaine Volume Anesthetic (ccs): 2 Needle & Syringe: 10 cc urine using a 25-gauge needle. Complications: none Progress: No complications. Patient neurovascular tact distally post procedure. Patient tolerated procedure well. - Course Nursing assessment & vital signs reviewed: Yes - Radiology Exams Hand X-ray Interpretation: Interpreted by me (Ulnar and dorsally dislocated fifth digit PIP. No obvious fracture. Osteopenia) Other X-ray Interpretation: Interpreted by me (Postreduction film shows successful reduction in both the AP and lateral views.) Ordered Tests: Active Orders 24 hr Category Date Time Status FINGER(S) Routine Exams 03/30/22 Ordered FINGER(S) Stat Exams 03/30/22 Ordered HAND (MINIMUM 3 VIEWS) Stat Exams 03/30/22 Taken Medication Summary Discontinued Medications Generic Name Dose Route Start Last Admin Trade Name Rea PRN Reason Stop Dose Admin Lidocaine HCl Confirm 03/30/22 22:50 Lidocaine Hcl 2% 20 Ml Mdv Administered 03/30/22 22:51 Dose 10 ml .ROUTE .STK-MED ONE - Progress Progress: improved Progress Note: 66-year-old male status post mechanical fall while ascending steps. Patient presented with a dislocated PIP joint. Dislocation confirmed on x-ray. The finger presented with a punctate lesion losing a small amount of blood. Extremity neurovascular intact distally. Digital block performed using 2% lidocaine no epinephrine. Adequate anesthesia achieved. Joint reduction was performed. Confirmatory postreduction film revealed successful reduction in both the AP and lateral planes. Patient neurovascular intact distally post procedure. Pain well controlled. Patient placed in a AlumaFoam splint. Patient neurovascular intact post splint application. Patient sent to orthopedic clinic for follow-up. A prescription for Keflex was forwarded to patient's pharmacy. Patient agrees to follow-up with orthopedic clinic within 48 hours for evaluation. Patient voices no other complaint or concerns at this time. Portions of this note were created with voice recognition technology. There may be grammatical, spelling, punctuation or sound alike errors 03/30/22 23:09 Counseled pt/family regarding: lab results, diagnosis, need for follow-up, rad results - Departure Departure Disposition: Home Clinical Impression: Fall, Dislocation of PIP joint of finger, Open finger dislocation Condition: Stable Critical Care Time: No Referrals: LUCILA THOMASON [Primary Care Provider] - Follow up/PCP as directed Additional Instructions: Discharge/Care Plan MARK ANTHONY MACDONALD was seen on 03/30/22 in the Emergency Room. The patient was counseled regarding Diagnosis,Lab results, Imaging studies, need for follow up and when to return to the Emergency Room. Prescriptions given: Discharge Note I have spoken with the patient and/or caregivers. I have explained the patient's condition, diagnosis and treatment plan based on the information available to me at this time. I have answered the patient's and/or caregiver's questions and addressed any concerns. The patient and/or caregivers have as good understanding of the patient's diagnosis, condition and treatment plan as can be expected at this point. The vital signs have been stable. The patient's condition is stable and appropriate for discharge from the emergency department. The patient will pursue further outpatient evaluation with the primary care physician or other designated or consulting physician as outlined in the discharge instructions. The patient and/or caregivers are agreeable to this plan of care and follow-up instructions have been explained in detail. The patient and/or caregivers have received these instruction. The patient/and or caregivers are aware that any significant change in condition or worsening of symptoms should prompt an immediate return to this or the closest emergency department or call 911. Prescriptions: Cephalexin Mh 500 mg [Keflex 500 mg] 500 mg PO TID #21 cap Outpatient Orders: Ortho Referral Time Frame: 1 Day, Facility: [facility], Locatio n: ORTHO CLINIC
[2022-03-30 23:09] VITALS: BP 130/95; PULSE 64
[2022-03-30] MEDS ORDERED: KEFLEX 500 MG PO STA (23:13)
[2022-03-30] MEDS ORDERED: KEFLEX 500 MG ONE (23:14)
--- NOTE | 2022-03-31 08:48 | XRAY ---
Indication: 5th finger deformity following fall. Comparison: None 3 view left hand demonstrates 5th PIP dislocation with varus angulation and soft tissue swelling. No other bony, articular, or soft tissue abnormalities.
--- NOTE | 2022-03-31 08:50 | XRAY ---
Indication: Postreduction. Comparison: Taken earlier in the day. 2 view left 5th finger demonstrates successful reduction of PIP dislocation. New tiny medial PIP linear ossification without donor site concerning for fracture fragment. No other bony, articular, or soft tissue abnormalities.
== END 2022-03-30 23:45 | disposition home or self-care (01) ==
LOC: ED 22:06
DX: S63.287A Dislocation of proximal interphalangeal joint of left little finger, initial encounter (principal); S61.237A Puncture wound without foreign body of left little finger without damage to nail, initial encounter; W10.9XXA Fall (on) (from) unspecified stairs and steps, initial encounter; M79.645 Pain in left finger(s); I10 Essential (primary) hypertension; Z79.891 Long term (current) use of opiate analgesic; Z79.899 Other long term (current) drug therapy
CPT/HCPCS: 26775; 73130; 73140; 96372; 99284; A9270-GY

== ENCOUNTER 2023-09-29 10:17 | Emergency (ER) | payer MEDICARE ==
[2023-09-29 10:42] VITALS: TEMP 98.5
[2023-09-29 10:48] LABS: BASOPHIL % 0.4 % (0.0-0.4); Basophil (Absolute #) 0.03 x10^3/uL (0-0.4); Eosinophil % 6.2 % (0.00-5.0); Hematocrit 43.3 % (42-50); Hemoglobin 14.2 g/dL (12.5-18.0); IMMATURE GRAN # 0.03 x10^3u/L (0.00-0.03); IMMATURE GRAN % 0.4 % (0.00-0.4); Lymphocytes % 17.4 % (24.0-44.0); Mean Cell Volume 96.4 fL (78-100); Mean Corpuscular Hemoglobin 31.6 pg (26-32); Mean Corpuscular Hgb Concent. 32.8 g/dL (32-36); Mean Platelet Volume 8.6 fL (7.5-11.0); Monocyte (Absolute #) 0.69 x10^3/uL (0.0-1.3); Monocytes % 8.6 % (0.0-12.0); Platelet Count 162 x10^3/uL (150-450); Red Blood Count 4.49 x10^6/uL (4.1-5.6); Red Cell Distribution Width 12.9 % (11.5-14.0); White Blood Count 8.1 x10^3/uL (4.0-10.5)
[2023-09-29 11:02] LABS: ALBUMIN 4.2 g/dL (3.5-5.0); BILIRUBIN,TOTAL 1.3 mg/dL (0.2-1.3); Calcium 9.6 mg/dL (8.4-10.2); Creatinine 1 2.53 mg/dL (0.66-1.25); EST GLOMERULAR FILTRATION RATE 26.8 ML/MIN; MAGNESIUM 2.3 mg/dL (1.6-2.3); Total Protein 7.5 g/dL (6.3-8.2)
[2023-09-29 11:12] LABS: Erythrocyte Sedimentation Rate 28 mm/hr (0-15)
[2023-09-29] MEDS ORDERED: Sodium Chloride 0.9% 1000 ML 1,000 ML IV STA ×2 (11:26→11:28)
--- NOTE | 2023-09-29 11:45 | XRAY ---
Indication: Pain following fall. Comparison: None 3 portable views left ankle demonstrates nondisplaced lateral malleolus fracture with soft tissue swelling. Elsewhere osteopenia, tiny plantar heel spur, and mild scattered vascular calcifications.
--- NOTE | 2023-09-29 11:59 | XRAY ---
Indication: Status post fall. Multiple contiguous axial images obtained through the head without contrast. Comparison: April 22, 2014 Minimal motion artifact degrades exam. Age-appropriate global atrophy and minimal periventricular degenerative micro-ischemia. No acute intracranial hemorrhage, abnormal extra-axial fluid collection, or mass effect. Fourth ventricle is midline without hydrocephalus. Bony calvarium intact. Again moderate mucosal thickening both ethmoid sinuses. New minimal mucosal thickening right frontal and right maxillary sinus with maxillary sinus fluid leveling. Mastoid air cells are clear. Impression: Minimal motion artifact. Nonacute senile brain. Again paranasal sinus disease.
--- NOTE | 2023-09-29 12:01 | XRAY ---
Indication: Status post fall. Multiple contiguous axial images obtained through the cervical spine. Sagittal and coronal reformatted images obtained. Comparison: April 22, 2024 Axial images again negative for acute fracture, suspicious bony lesions, or spinal canal stenosis. Minimal/mild multilevel endplate spurring greatest at C6-C7. Facets are symmetric. Sagittal and coronal reformatted images demonstrates normal alignment. Minimal C3-C4 and C6-C7 disc space narrowing. No acute compression fracture, subluxation, or jumped facet. Normal appearing craniocervical junction. Visualized noncontrasted soft tissues unremarkable. Again mild biapical pleural proximal scarring. Impression: Continued negative acute fracture. Again multilevel degenerative changes and biapical pleural parenchymal scarring.
--- NOTE | 2023-09-29 12:05 | XRAY ---
Indication: Status post fall. Multiple contiguous axial images obtained through the facial bones. Sagittal and coronal reformatted images obtained. Comparison: None Beam artifact from multiple bilateral upper and lower dental amalgams/implants. No acute fracture or suspicious bony lesions. Orbits including roof, phillips, and floors intact.. There has been bilateral maxillary sinus antrectomy. Moderate mucosal thickening both ethmoid and minimal mucosal thickening right frontal/right frontal sinuses with tiny right maxillary sinus fluid leveling. Visualized noncontrasted soft tissues demonstrates scattered centimeter/subcentimeter cervical and submandibular lymph nodes none pathologically enlarged. Impression: Beam artifact from dental amalgam/implants. Negative acute fracture. Paranasal sinus disease as detailed with bilateral maxillary sinus antrectomy.
--- NOTE | 2023-09-29 12:07 | XRAY ---
Indication: Status post fall. Multiple contiguous images obtained through the lumbar spine. Sagittal and coronal reformatted images obtained. Comparison: None Negative for acute fracture, suspicious bony lesions, or spinal canal stenosis. Minimal multilevel anterior endplate spurring and minimal L5-S1 posterior broad-based disc bulge with degenerative vacuum disc phenomena. Facets are symmetric with mild/moderate L4-S1 degenerative facet hypertrophy. Sagittal and coronal reformatted images demonstrates normal lumbar lordosis with minimal levoscoliosis centered at L3. Minimal L5-S1 disc space narrowing. No acute compression fracture or subluxation. Visualized noncontrasted soft tissues demonstrate minimal aortoiliac calcifications and tiny splenic calcified granulomas. Impression: Nonacute lumbar spine with chronic features.
[2023-09-29] MEDS ORDERED: Sodium Chloride 0.9% 1000 ML 2,000 ML ONE (12:15)
[2023-09-29] MEDS ORDERED: NORVASC 5 MG PO ONE (13:34)
[2023-09-29] MEDS ORDERED: NORVASC 5 MG ONE (13:36)
[2023-09-29 15:19] VITALS: BP 144/92; PULSE 80; RESP 13; O2SAT 97
[2023-09-29] MEDS ORDERED: Reglan 10 MG/2 ML IV ONE (15:22)
--- NOTE | 2023-09-29 15:33 | ERPHSYRPT ---
- History of Present Illness Time Seen by Provider: 09/29/23 10:35 Source: patient Exam Limitations: no limitations Patient Subjective Stated Complaint: pt took a fall a week ago and came in with the same clothes on with blood on them and reports that he hit his forehead, chin, left side of head that kinked his neck and also thinks he broke his left ankle and is having back and shoulder pain Triage Nursing Assessment: Pt was brought to the ER by his insurance transportation, vitals wnl, rates pain at least a 9/10, left lower leg and ankle swollen, right shoulder pain, states that he has no food at home and last ate yesterday morning, has applied for food stamps and medicaid but hasn't received yet, abrasion to chin, healing laceration to forehead, abrasion to left rastafarian, pulses normal, skin n/w/d, appears very tired Physician History: Patient is a 68-year-old white male who apparently turned around in his kitchen and fell onto his left side he hit the left side of his head he kinked the left side of his neck. He complains of pain in the neck facial bones with abrasions to the forehead and the laceration to the chin. He also complains of pain in his head from falling and hitting. He has left ankle also is bothered him he thinks it is broken. He also has lumbar pain. Occurred: last week (Last week) Reason for Fall: lightheaded, lost balance Injuries/Pain Location: head, face, neck, lower extremity (Left ankle), lower (L ower back) Loss of Consciousness: prolonged (minutes), unsure Quality: aching Severity of Pain-Max: moderate Severity of Pain-Current: moderate Modifying Factors: Improves With: movement Associated Symptoms (Fall): back pain, extremity injury, headache Allergies/Adverse Reactions: iodine Allergy (Mild, Verified 09/29/23 10:42) Hives Home Medications: Lisinopril 10 mg [Zestril 10 MG] 20 mg PO DAILY 05/20/18 [History] Oxycodone HCl 5 mg Ir [Oxy-IR 5 MG] 10 mg PO QID 09/29/23 [History] Hx Tetanus, Diphtheria Vaccination/Date Given: No Hx Influenza Vaccination/Date Given: Yes Hx Pneumococcal Vaccination/Date Given: No Travel Risk - International Travel Have you traveled outside of the country in past 3 weeks: No - Coronavirus Screening Are you exhibiting any of the following symptoms?: No Close contact with a COVID-19 positive Pt in past 14-21 Days: No - Vaccine Status Have you recieved a Covid-19 vaccination: Yes 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 - Vaccination Dates Date of 2cond Vaccination (if applicable): 2020 - Review of Systems Constitutional: No Fever, No Chills Eyes: No Symptoms Ears, Nose, & Throat: No Symptoms Respiratory: No Cough, No Dyspnea Cardiac: No Chest Pain, No Edema, No Syncope Abdominal/Gastrointestinal: No Abdominal Pain, No Nausea, No Vomiting, No Diarrhea Genitourinary Symptoms: No Dysuria Musculoskeletal: Joint Pain, Joint Swelling, No Back Pain, No Neck Pain Skin: No Rash Neurological: Headache, No Dizziness, No Focal Weakness, No Sensory Changes Psychological: No Symptoms Endocrine: No Symptoms All Other Systems: Reviewed and Negative - Past Medical History Pertinent Past Medical History: Yes Neurological History: Migraines ENT History: No Pertinent History Cardiac History: Hypertension Respiratory History: No Pertinent History Endocrine Medical History: No Pertinent History Musculoskeletal History: Arthritis, Degenerative Disk Disease, Other GI Medical History: Ulcer History: No Pertinent History Psycho-Social History: No Pertinent History Male Reproductive Disorders: No Pertinent History Other Medical History: lower lumbar fx as teenager, chronic back pain - Past Surgical History Past Surgical History: Yes Neuro Surgical History: No Pertinent History Cardiac: No Pertinent History Respiratory: No Pertinent History Gastrointestinal: No Pertinent History Genitourinary: No Pertinent History Musculoskeletal: No Pertinent History Male Surgical History: No Pertinent History Other Surgical History: NASAL SURGERY. RIGHT SHOULDER SURGERY - Social History Smoking Status: Never smoker Exposure to second hand smoke: No Drug Use: none Patient Lives Alone: Yes - Nursing Vital Signs Nursing Vital Signs: Initial Vital Signs Temperature 98.5 F 09/29/23 10:25 Pulse Rate 96 H 09/29/23 10:25 Blood Pressure 106/76 09/29/23 10:25 O2 Sat by Pulse Oximetry 100 09/29/23 10:25 Pain Scale Pain Intensity 10 - Johnston Coma Score Best Eye Response (Johnston): (4) open spontaneously Best Verbal Response (Ashlyn): (5) oriented Best Motor Response (Ashlyn): (6) obeys commands Ashlyn Total: 15 - Physical Exam General Appearance: no apparent distress, alert Head Injury: no evidence of injury Eye Exam: PERRL/EOMI ENT Exam: airway nml Neck Exam: normal inspection, No tenderness Respiratory/Chest Exam: normal breath sounds, No chest tenderness, No respiratory distress Cardiovascular Exam: normal heart sounds, regular rate/rhythm Gastrointestinal Exam: soft, No tenderness, No distention, No guarding, No ecchymosis Back Exam: normal inspection, No vertebral tenderness Extremity Exam: normal inspection, normal range of motion, pelvis stable, No deformities Neurologic Exam: alert, oriented x 3, cooperative, sensation nml, No motor deficits Skin Exam: normal color, warm, dry, abrasion (Forehead), laceration (Tran) SpO2 Interpretation: normal SpO2: 97 O2 Delivery: Room Air Procedures - Splinting Location of Splint: Left, Ankle Type of Splint: Walking Boot/Shoe Splint Applied By: ED Nurse Pre-Proc Neuro Vasc Exam: normal Post-Proc Neuro Vasc Exam: neurovascular intact - Course Nursing assessment & vital signs reviewed: Yes EKG Interpreted by Me: RATE (92), Sinus Rhythm, NORMAL AXIS, NORMAL INTERVALS, NORMAL QRS, ST Elev (Very slight elevation in the anterior leads), Non-specific ST Changes - Radiology Exams Left Ankle X-ray Interpretation: Non-displaced Fracture (On negative facial bones C-spine left lateral malleolus) - CT Exams Head CT Interpretation: Negative Maxillofacial Bones CT Interpretation: Negative Cervical Spine CT Interpretation: Negative Ordered Tests: Active Orders 24 hr Category Date Time Status EKG-ER Only STAT Care 09/29/23 10:29 Active Splint STAT Care 09/29/23 13:12 Active ANKLE (3 VIEWS) Stat Exams 09/29/23 10:31 Completed CERVICAL SPINE WO CONTRAST [CT] Stat Exams 09/29/23 10:28 Completed FACIAL BONES WO CONTRAST [CT] Stat Exams 09/29/23 10:28 Completed HEAD WITHOUT CONTRAST [CT] Stat Exams 09/29/23 10:28 Completed LUMBAR SPINE W/O [CT] Stat Exams 09/29/23 10:28 Completed CBC W DIFF Stat Lab 09/29/23 10:45 Completed CK (IN-HOUSE) [CK-Creatinine Phosphokinase] Stat Lab 09/29/23 15:05 Received CK-Creatinine Phosphokinase Stat Lab 09/29/23 10:45 Completed CMP Stat Lab 09/29/23 10:45 Completed CMP Stat Lab 09/29/23 15:05 Received Erythrocyte Sedimentation Rate Stat Lab 09/29/23 10:45 Completed LIPASE Stat Lab 09/29/23 10:45 Completed Lactic Acid Stat Lab 09/29/23 10:45 Completed MAGNESIUM Stat Lab 09/29/23 10:45 Completed NT PRO BNPII Stat Lab 09/29/23 10:45 Completed TROPONIN Q4H Lab 09/29/23 10:45 Completed TROPONIN Q4H Lab 09/29/23 13:30 Completed TROPONIN Q4H Lab 09/29/23 18:30 Ordered Medication Summary Discontinued Medications Generic Name Dose Route Start Last Admin Trade Name Freq PRN Reason Stop Dose Admin Amlodipine Besylate 5 mg 09/29/23 13:34 09/29/23 13:38 Amlodipine Besylate 5 Mg Tablet PO 09/29/23 13:35 5 mg STAT ONE Administration Amlodipine Besylate Confirm 09/29/23 13:36 Amlodipine Besylate 5 Mg Tablet Administered 09/29/23 13:37 Dose 5 mg .ROUTE .STK-MED ONE Sodium Chloride 1,000 mls @ 999 mls/hr 09/29/23 11:26 09/29/23 13:30 Sodium Chloride 0.9% 1000 Ml IV 09/29/23 12:26 Infused .Q1H1M STA Infusion Sodium Chloride 1,000 mls @ 999 mls/hr 09/29/23 11:28 09/29/23 14:32 Sodium Chloride 0.9% 1000 Ml IV 09/29/23 12:28 Infused .Q1H1M STA Infusion Sodium Chloride Confirm 09/29/23 12:15 Sodium Chloride 0.9% 1000 Ml Administered 09/29/23 12:16 Dose 2,000 mls @ ud .ROUTE .STK-MED ONE Metoclopramide HCl 10 mg 09/29/23 15:22 Metoclopramide Hcl 10 Mg/2 Ml Vial IV 09/29/23 15:23 STAT ONE Lab/Rad Data: Laboratory Result Diagrams 09/29/23 10:45 09/29/23 10:45 Laboratory Results 09/29/23 09/29/23 09/29/23 Range/Units 13:30 10:45 10:45 WBC (4.0-10.5) x10^3/uL RBC (4.1-5.6) x10^6/uL Hgb (12.5-18.0) g/dL Hct (42-50) % MCV (78-100) fL MCH (26-32) pg MCHC (32-36) g/dL RDW (11.5-14.0) % Plt Count (150-450) x10^3/uL MPV (7.5-11.0) fL Gran % (36.0-66.0) % Immature Gran % (Auto) (0.00-0.4) % Nucleat RBC Rel Count (0.00-0.1) % Eos # (Auto) (0-0.5) x10^3/uL Immature Gran # (Auto) (0.00-0.03) x10^3u/L Absolute Lymphs (auto) (1.0-4.6) x10^3/uL Absolute Monos (auto) (0.0-1.3) x10^3/uL Absolute Nucleated RBC (0.00-0.01) x10^3u/L Lymphocytes % (24.0-44.0) % Monocytes % (0.0-12.0) % Eosinophils % (0.00-5.0) % Basophils % (0.0-0.4) % Absolute Granulocytes (1.4-6.9) x10^3/uL Basophils # (0-0.4) x10^3/uL ESR (0-15) mm/hr Sodium (137-145) mmol/L Potassium (3.5-5.1) mmol/L Chloride (98-107) mmol/L Carbon Dioxide (22-30) mmol/L Anion Gap (5-15) MEQ/L BUN (9-20) mg/dL Creatinine (0.66-1.25) mg/dL Estimated GFR ML/MIN Glucose (74-106) mg/dL Lactic Acid (0.4-2.0) Calcium (8.4-10.2) mg/dL Magnesium (1.6-2.3) mg/dL Total Bilirubin (0.2-1.3) mg/dL AST (17-59) U/L ALT (0-50) U/L Alkaline Phosphatase (38-126) U/L Creatine Kinase (55-170) U/L Troponin I < 0.012 < 0.012 (0.000-0.034) ng/mL NT-Pro-B Natriuret Pep 83.1 (<300) pg/mL Serum Total Protein (6.3-8.2) g/dL Albumin (3.5-5.0) g/dL Lipase (23-300) U/L 09/29/23 09/29/23 09/29/23 Range/Units 10:45 10:45 10:45 WBC 8.1 (4.0-10.5) x10^3/uL RBC 4.49 (4.1-5.6) x10^6/uL Hgb 14.2 (12.5-18.0) g/dL Hct 43.3 (42-50) % MCV 96.4 (78-100) fL MCH 31.6 (26-32) pg MCHC 32.8 (32-36) g/dL RDW 12.9 (11.5-14.0) % Plt Count 162 (150-450) x10^3/uL MPV 8.6 (7.5-11.0) fL Gran % 67.0 H (36.0-66.0) % Immature Gran % (Auto) 0.4 (0.00-0.4) % Nucleat RBC Rel Count 0.0 (0.00-0.1) % Eos # (Auto) 0.50 (0-0.5) x10^3/uL Immature Gran # (Auto) 0.03 (0.00-0.03) x10^3u/L Absolute Lymphs (auto) 1.40 (1.0-4.6) x10^3/uL Absolute Monos (auto) 0.69 (0.0-1.3) x10^3/uL Absolute Nucleated RBC 0.00 (0.00-0.01) x10^3u/L Lymphocytes % 17.4 L (24.0-44.0) % Monocytes % 8.6 (0.0-12.0) % Eosinophils % 6.2 H (0.00-5.0) % Basophils % 0.4 (0.0-0.4) % Absolute Granulocytes 5.40 (1.4-6.9) x10^3/uL Basophils # 0.03 (0-0.4) x10^3/uL ESR 28 H (0-15) mm/hr Sodium 136 L (137-145) mmol/L Potassium 4.0 (3.5-5.1) mmol/L Chloride 100 (98-107) mmol/L Carbon Dioxide 26 (22-30) mmol/L Anion Gap 14.0 (5-15) MEQ/L BUN 29 H (9-20) mg/dL Creatinine 2.53 H (0.66-1.25) mg/dL Estimated GFR 26.8 ML/MIN Glucose 103 (74-106) mg/dL Lactic Acid 1.8 (0.4-2.0) Calcium 9.6 (8.4-10.2) mg/dL Magnesium 2.3 (1.6-2.3) mg/dL Total Bilirubin 1.30 (0.2-1.3) mg/dL AST 43 (17-59) U/L ALT 21 (0-50) U/L Alkaline Phosphatase 83 (38-126) U/L Creatine Kinase 861 H (55-170) U/L Troponin I (0.000-0.034) ng/mL NT-Pro-B Natriuret Pep (<300) pg/mL Serum Total Protein 7.5 (6.3-8.2) g/dL Albumin 4.2 (3.5-5.0) g/dL Lipase 114 (23-300) U/L - Progress Progress: improved Medical Desision Making - Social Determinants of Health Pt's dx & treatment plan are significantly limited by SDOH: food insecurity (Patient states she has no food and has not eaten for some a few days) Limited access to: transportation - Diagnostic Testing Diagnostic test were ordered, analyzed, and reviewed by me: Yes Radiological Interpretation: Reviewed by me - Risk of complications Low Risk: Low risk of morbidity from additional dx testing or treatment - Departure Departure Disposition: Home Clinical Impression: Fracture of left ankle Condition: Stable Critical Care Time: No Referrals: LUCILA THOMASON [Primary Care Provider] - Follow up/PCP as directed Instructions: Ankle Fracture (DC) Additional Instructions: Patient was instructed to follow-up with the Ortho clinic at 8:00 Monday morning
[2023-09-29 16:13] LABS: ALBUMIN 3.6 g/dL (3.5-5.0); ANION GAP 14.8 MEQ/L (5-15); BILIRUBIN,TOTAL 1.1 mg/dL (0.2-1.3); Calcium 8.8 mg/dL (8.4-10.2); Creatinine 1 2.07 mg/dL (0.66-1.25); Total Protein 6.8 g/dL (6.3-8.2)
== END 2023-09-29 16:03 | disposition home or self-care (01) ==
LOC: ED 10:17
DX: S82.65XA Nondisplaced fracture of lateral malleolus of left fibula, initial encounter for closed fracture (principal); S00.81XA Abrasion of other part of head, initial encounter; S01.81XA Laceration without foreign body of other part of head, initial encounter; W18.30XA Fall on same level, unspecified, initial encounter; Y92.000 Kitchen of unspecified non-institutional (private) residence as the place of occurrence of the external cause; M54.2 Cervicalgia; R51.9 Headache, unspecified; M54.50 Low back pain, unspecified; I10 Essential (primary) hypertension; Z79.891 Long term (current) use of opiate analgesic; Z79.899 Other long term (current) drug therapy; Z59.41 Food insecurity; Z59.82 Transportation insecurity
CPT/HCPCS: 36000; 36415; 70450; 70486; 72125; 72131; 73610; 80053; 82550; 83605; 83690; 83735; 83880; 84484; 85025; 85652; 93005; 96360; 99284; L4386; A9270-GY

== ENCOUNTER 2025-08-11 01:12 | Emergency (ER) | payer MEDICARE ==
[2025-08-11 01:28] VITALS: RESP 18; TEMP 98.9
--- NOTE | 2025-08-11 01:45 | ERPHSYRPT ---
- History of Present Illness Time Seen by Provider: 08/11/25 01:45 Source: patient Exam Limitations: no limitations Patient Subjective Stated Complaint: . Triage Nursing Assessment: . Physician History: Patient presents emergency room after a mechanical fall that caused him to hit the right side of his head near the frontal region. He has a laceration over the area. Patient reports headache. No neurologic deficits. Patient does report some scrapes on both knees but not concerning to the patient at this time. Occurred: just prior to arrival Head Injury Location: frontal Method of Injury: fell Loss of Consciousness: no loss of consciousness Associated Symptoms: headaches, No nausea, No vomiting Allergies/Adverse Reactions: iodine Allergy (Mild, Verified 08/11/25 01:24) Hives Home Medications: Lisinopril 10 mg [Zestril 10 MG] 20 mg PO DAILY 05/20/18 [History] Oxycodone HCl 5 mg Ir [Oxy-IR 5 MG] 10 mg PO QID 09/29/23 [History] Hx Tetanus, Diphtheria Vaccination/Date Given: No Hx Influenza Vaccination/Date Given: Yes Hx Pneumococcal Vaccination/Date Given: No Travel Risk - International Travel Have you traveled outside of the country in past 3 weeks: No - Emerging Infectious Disease Are you exhibiting symptoms associated with any current EIDs: No - Review of Systems All Other Systems: Reviewed and Negative - Past Medical History Pertinent Past Medical History: Yes Neurological History: Migraines ENT History: No Pertinent History Cardiac History: Hypertension Respiratory History: No Pertinent History Endocrine Medical History: No Pertinent History Musculoskeletal History: Arthritis, Degenerative Disk Disease, Other GI Medical History: Ulcer History: No Pertinent History Psycho-Social History: No Pertinent History Male Reproductive Disorders: No Pertinent History Other Medical History: lower lumbar fx as teenager, chronic back pain - Past Surgical History Past Surgical History: Yes Neuro Surgical History: No Pertinent History Cardiac: No Pertinent History Respiratory: No Pertinent History Gastrointestinal: No Pertinent History Genitourinary: No Pertinent History Musculoskeletal: No Pertinent History Male Surgical History: No Pertinent History Other Surgical History: NASAL SURGERY. RIGHT SHOULDER SURGERY - Social History Smoking Status: Never smoker Exposure to second hand smoke: No Drug Use: none - Social Determinants of Health Will the patient participate in the screening: Yes Do you worry about a steady place to live?: No Do you have any problems with any of the following?: No known problems In the past 12 months,have you had to go without utilities?: No Transportation Issues: No Has anyone in your support network made you feel unsafe?: No Have you or anyone in your house had to go w/o enough food: No - Nursing Vital Signs Nursing Vital Signs: Initial Vital Signs Temperature 98.9 F 08/11/25 01:25 Pulse Rate 80 08/11/25 01:25 Respiratory Rate 18 08/11/25 01:25 Blood Pressure 104/71 08/11/25 01:25 O2 Sat by Pulse Oximetry 96 08/11/25 01:25 Pain Scale Pain Intensity 4 - Ashlyn Coma Score Best Eye Response (Ashlyn): (4) open spontaneously Best Verbal Response ([place]): (5) oriented Best Motor Response (Ashlyn): (6) obeys commands Ashlyn Total: 15 - Physical Exam General Appearance: no apparent distress Head Injury: lacerations (right frontal) Eye Exam: bilateral eye: normal inspection, PERRL, EOMI Neck Exam: supple, trachea midline, full range of motion, normal alignment, No tenderness Mental Status Exam: alert, oriented x 3, 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 CT head without c ontrast ordered to evaluate for acute injury. Laceration repaired with Dermabond and Steri-Strips. Care information given the patient regarding to wound care. Return precautions given to patient. Counseled pt/family regarding: diagnosis, need for follow-up, rad results Medical Desision Making - Diagnostic Testing Diagnostic test were ordered, analyzed, and reviewed by me: Yes Radiological Interpretation: Interpreted by me, Reviewed by me, Teleradiologist Report - Risk of complications Low Risk: Low risk of morbidity from additional dx testing or treatment - Departure Departure Disposition: Home Clinical Impression: Laceration of forehead Condition: Stable Critical Care Time: No Referrals: LUCILA THOMASON [NON-STAFF PHY W/O PRIVILEGES, FAMILY PRACTICE] - Follow up/PCP as directed Instructions: Laceration Repair With Glue (DC)
[2025-08-11 03:05] VITALS: BP 104/64; PULSE 73; O2SAT 92
--- NOTE | 2025-08-11 03:06 | XRAY ---
CLINICAL HISTORY: head injury COMPARISON: Prior CT dated 09/29/2023. TECHNIQUE: Axial non-contrast CT scan of the brain was performed from the skull base to the high parietal region. One of the following dose reduction techniques were utilized for this exam: Automated exposure control, adjustment of the mA and/or kV according to patient size, use of iterative reconstruction. FINDINGS: Skull: Newly seen right frontal subgaleal soft tissue sheets measure 5mm in maximal thickness, likely representing a hematoma (new). Normal skull morphology with no definite fracture. Brain Parenchyma: There are multiple tiny, ill-defined, hypodense foci and small areas noted in the subcortical and periventricular white matter bilaterally associated with bilateral periventricular patchy symmetrical hypodense areas capping both ventricles, suggestive of microvascular ischemic changes. (stable) Normal attenuation of the cerebellum and brainstem. No evidence of acute infarct, hemorrhage, or mass effect. No abnormal areas of hyperattenuation. Ventricular SystemSubarachnoid Spaces:: Prominent retrocerebellar cistern. The ventricular system, cortical sulci, cerebellar folia, and basal cisterns are prominent and consistent with senile changes. No evidence of hydrocephalus. No evidence of subarachnoid hemorrhage or extra-axial fluid collections. Cerebellum and Brainstem: No masses, lesions, or areas of abnormal density. Orbits: Normal appearance of the globes, optic nerves, and extraocular muscles. No evidence of orbital masses or abnormal density. Sinuses: Mild mucosal thickening is seen involving the left maxillary sinus and the ethmoidal air cells on both sides. (regressive) Mastoid Air Cells: Clear mastoid air cells. No evidence of mastoiditis. IMPRESSION: 1. Newly seen right frontal subgaleal soft tissue sheets, likely representing a small hematoma (new). 2. No acute intracranial hemorrhage or established territorial infarct. 3. Chronic microvascular ischemic changes, as well as age-related brain involutional changes. (stable) Electronically Signed by: Dawson Carrion MD. (08/11/2025 03:06:09 EDT)
== END 2025-08-11 03:35 | disposition home or self-care (01) ==
LOC: ED 01:12
DX: S01.81XA Laceration without foreign body of other part of head, initial encounter (principal); W19.XXXA Unspecified fall, initial encounter; R51.9 Headache, unspecified; I10 Essential (primary) hypertension; Z79.899 Other long term (current) drug therapy